=== PATIENT | male | born 1960 | race Caucasian/White ===

== ENCOUNTER 2019-07-23 11:07 | Emergency (ER) | payer OTHER, SELFPAY ==
[2019-07-23] VITALS (16 sets, daily range): BP systolic 134–192; BP diastolic 76–94; PULSE 72–142; RESP 14–192; TEMP 36.4–36.9; O2SAT 96–100
--- NOTE | ~2019-07-23 | XR_ITS ---
EXAMINATION: XR wrist LT 2V INDICATION: Right distal radius fracture post reduction TECHNIQUE: Two views of the right wrist are obtained. COMPARISON: 1113 hours FINDINGS: The previously described comminuted, intra-articular fracture of the distal radius has been reduced and is in near-anatomic alignment. Soft tissue swelling surrounds the wrist. A splint has be en applied. No definite additional acute osseous abnormality is identified. IMPRESSION: 1. Reduced distal radius fracture in near-anatomic alignment. Reviewed, dictated and finalized at location A.
--- NOTE | ~2019-07-23 | XR_ITS ---
XR shoulder RT min 2V DATE: 07/23/2019 11:21 INDICATION: Fall. Right shoulder injury. Lateral proximal humeral pain. TECHNIQUE: 4 views of right shoulder COMPARISON: None FINDINGS: No fracture or dislocation, periosteal reaction or bone destruction is evident. Normal alig nment at the acromioclavicular and glenohumeral joints. There is some calcification adjacent to the greater tuberosity which may represent calcific tendiniti s. IMPRESSION: No fracture or dislocation Reviewed, dictated and finalized at location A. IMPRESSION: No fracture or dislocation
--- NOTE | ~2019-07-23 | XR_ITS ---
XR wrist LT min 3V DATE: 07/23/2019 11:21 INDICATION: Fall, injury. Left wrist pain. TECHNIQUE: 3 views COMPARISON: None FINDINGS: There is a comminuted intra-articular fracture distal radius with up to 6 mm dorsal displac ement and apex volar angulation with associated dorsal inclination of the distal radial articular mahesh face. The distal ulna appears intact. Radiocarpal alignment is preserved. IMPRESSION: Comminuted intra-articular fracture of the distal radius with dorsal displacement and rocío jefry inclination of the distal radial articular surface Reviewed, dictated and finalized at location A. IMPRESSION: Comminuted intra-articular fracture of the distal radius with dorsa l displacement and dorsal inclination of the distal radial articular surface
--- NOTE | 2019-07-23 12:41 | ED.UPPEXIN ---
HPI - Extremity Injury (Upper) General Chief Complaint: Extremity Injury, Upper <Reddy Ovalle PA-C - Last Filed: 07/23/19 16:21> Stated Complaint: fall - left wrist injury <RADHA Lemus Last Filed: 07/23/19 16:21> Time Seen by Provider: 07/23/19 11:18 <Reddy Ovalle PA-C - Last Filed: 07/23/19 16:21> Source: patient <RADHA Lemus Last Filed: 07/23/19 16:21> Mode of arrival: ambulatory <RADHA Lemus Last Filed: 07/23/19 16:21> Limitations: no limitations <RADHA Lemus Last Filed: 07/23/19 16:21> History of Present Illness HPI narrative: Patient presents with chief complaint of pain to right shoulder and pain to left wrist that began after patient fell down 6-8 steps this morning while taking out the dog. Patient states that he did not hit his head or hurt his neck, have any loss of consciousness, changes in vision or hearing, headache, or bleeding from his orifices. He denies any neurological deficits. Patient states that he put out his left hand to break his self and this when he noticed a pop and pain sensation. Patient reports he still has sensation to his fingers. Patient reports pain with any range of motion of his wrist. Patient reports swelling to the area. Patient denies prior fracture to the wrist or shoulder. Patient states that he ate and drank just prior to coming to the emergency department. <Reddy Ovalle PA-C - Last Filed: 07/23/19 16:21> Related Data Home Medications: Home Medications Medication Instructions Recorded Confirmed lisinopril-hydrochlorothiazide tablet 07/23/19 <Reddy Ovalle PA-C - Last Filed: 07/23/19 16:21> Allergies/Adverse Reactions: Allergies Allergy/AdvReac Type Severity Reaction Status Date / Time No Known Allergies Allergy Unverified 07/23/19 11:14 <RADHA Lemus Last Filed: 07/23/19 16:21> Review of Systems Review of Systems: Narrative: CONSTITUTIONAL: Denies fever, chills, or sweats. EYES: Denies visual changes, redness, or discharge. ENT: Denies rhinorrhea, congestion, sore throat, or otalgia. CARDIOVASCULAR: Denies chest pain, palpitations, or edema. RESPIRATORY: Denies cough or dyspnea. GASTROINTESTINAL: Denies abdominal pain, nausea, vomiting, or diarrhea. GENITOURINARY: Denies dysuria or hematuria. SKIN: Denies rash or itching. MUSCULOSKELETAL: Right shoulder and left wrist pain NEUROLOGIC: Denies headache, numbness, dizziness, or weakness. PSYCHIATRIC: Denies anxiety or depression. <Reddy Ovalle PA-C - Last Filed: 07/23/19 16:21> [facility] Social History Social History: Social History (Updated 07/23/19 @ 12:44 by Reddy Ovalle PA-C) Additional smoking assessment comments: none Alcohol use details: occasional Substance use: current Substance use type: marijuana Gender identity (if verbalized by the patient): Male <Reddy Ovalle PA-C - Last Filed: 07/23/19 16:21> Exam Narrative: Exam Narrative: GENERAL: Well-appearing, well-nourished, and in no acute distress. HEAD: Normocephalic, atraumatic. No outward signs of injury or tenderness. EYES: PERRLA and EOMI. ENT: Nares clear, no rhinorrhea or epistaxis. Mucous membranes moist. Oropharynx without tonsillar hypertrophy exudate or other lesions. Bilateral TMs pearly dunlap nonbulging NECK: Supple. No adenopathy or masses. CHEST: Clear to auscultation. No respiratory distress. No wheezes rales or rhonchi HEART: Regular rate and rhythm. EXTREMITIES: Tenderness with palpation of right shoulder. Range of motion limited due to discomfort to right shoulder. Edema deformity noted to left wrist. Radial pulse strong and palpable. Abrasion noted to ulnar aspect. Sensations noted to all fingertips. Cap refill intact as well. SKIN: Warm, dry, no rash. NEURO: No focal deficits. Alert and oriented x3. PSYCH: Normal mood and affect. <Reddy Ovalle PA-C - Last Filed: 07/23/19 16:21> Co
[2019-07-23] MEDS: ONDANSETRON INJ 4 MG/2 ML VIAL IV PUSH (13:21)
--- NOTE | 2019-08-28 13:32 | PM.OP ---
Procedure Note - Brief Procedure Note - Brief Date of procedure: 08/28/19 Pre-op diagnosis: fall - left wrist injury Surgeon: Dayton Candelaria MD THE PATIENT WAS SEDATED BY THE ER ATTENDING PHYSICIAN. ONCE HE APPEARED SEDATED THE LEFT WRIST WAS REDUCED AND THEN PLACED IN A SUGAR TONG SPLINT. XRAYS WERE TAKEN SHOWING IMPROVED ALIGNMENT OF THE DISTAL RADIUS FRACTURE. HE TOLERATED THE PROCEDURE WELL.
== END 2019-07-23 16:55 | disposition home or self-care (01) ==
PROVIDERS: Emergency Provider General Practice; PCP Internal Medicine
DX: S52.572A Other intraarticular fracture of lower end of left radius, initial encounter for closed fracture (principal); W10.9XXA Fall (on) (from) unspecified stairs and steps, initial encounter
CPT/HCPCS: 25605; 73030; 73100; 73110; 96374; 96375; 99285; A4565; A9270; J2405; J2704; J3010

== ENCOUNTER 2021-12-01 13:09 | Emergency (ER) | payer OTHER, SELFPAY ==
--- NOTE | ~2021-12-01 | XR_ITS ---
EXAMINATION: XR foot RT min 3V DATE: 12/01/2021 14:17 INDICATION: Right foot pain TECHNIQUE: Dorsoplantar, lateral, and 2 oblique views of the right foot were obtained. COMPARISON: 03/29/2007 FINDINGS: No acute fracture is identified. There is deformity in the fifth metatarsal at the site of previous fracture. Bone alignment is otherwise normal. 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 The soft tissues are unremarkable. Ther e is a posterior plantar calcaneal enthesophyte. IMPRESSION: 1. No acute osseous abnormality. Reviewed, dictated and finalized at location B.
[2021-12-01 13:17] VITALS: BP 164/104; PULSE 96; RESP 12; TEMP 37.3; O2SAT 99
--- NOTE | 2021-12-01 13:43 | ED.LOWEXIN ---
HPI - Extremity Injury (Lower) General Chief Complaint: Extremity Injury, Lower Stated Complaint: rt foot pain Time Seen by Provider: 12/01/21 13:30 Source: patient Mode of arrival: ambulatory Limitations: no limitations History of Present Illness HPI Narrative: Patient presents today complaining of right foot pain x6 to 8 weeks. States he jammed his right second toe while he was going over dog gate. He has been continuing to walk with a limp. States he can no longer jog or walk without shoes in his home. States he continues to have some swelling in his foot. He currently rates his pain at rest 3/10, which is worse at night. He had been occasionally taking ibuprofen immediately following the injury, but has not taken any [id number] treatment for his pain for several weeks. Denies numbness or tingling. Describes the pain on the bottom of his foot as a burning pain, especially with flexion of the toe. Related Data Home Medications Medication Instructions Recorded Confirmed No Home Medications 12/01/21 12/01/21 Allergies Allergy/AdvReac Type Severity Reaction Status Date / Time No Known Allergies Allergy Verified 12/01/21 13:17 Review of Systems Review of Systems: CONSTITUTIONAL: Denies body aches, fever, chills, or sweats. EYES: Denies visual changes, redness, or discharge. ENT: Denies rhinorrhea, congestion, sore throat, or otalgia. CARDIOVASCULAR: Denies chest pain, palpitations, or edema. RESPIRATORY: Denies cough or dyspnea. GASTROINTESTINAL: Denies abdominal pain, nausea, vomiting, or diarrhea. GENITOURINARY: Denies dysuria or hematuria. SKIN: Denies rash, itching, or wounds. MUSCULOSKELETAL: Denies back pain, or myalgia.+ Right foot pain NEUROLOGIC: Denies headache, numbness, tingling, or weakness. PSYCH: Denies depression or anxiety. [facility] Past Medical History Medical History (Updated 12/01/21 @ 14:54 by Cari Burris, AIRPORT CLERK, ) Dupuytren's contracture of left hand Family History Family History Mother Diabetes mellitus Family history of heart disease in male family member before age 55 Social History Social History Smoking status: Never smoker Second hand tobacco smoke exposure: No Additional smoking assessment comments: none Alcohol intake: current Alcohol use details: occasional Substance use: current Substance use type: marijuana Gender identity (if verbalized by the patient): Male Comments At time of signature, I have reviewed and agree with nursing past medical, surgical, social and family history unless otherwise noted. Please see nursing chart for further information. There is no relevant family history pertinent to the presenting complaint Exam Narrative: GENERAL: Well-appearing, well-nourished, and in no acute distress. HEAD: Normocephalic, atraumatic. EYES: EOMI. No redness or drainage. Conjunctivae normal. ENT: Mucous membranes pink and moist. NECK: Normal AROM. CHEST: No respiratory distress. EXTREMITIES:: Right foot: No tenderness to the second toe. Tenderness to the distal aspect of the second metatarsal on the dorsal and plantar aspect. Patient does have some scant edema to the base of the second and third toes. No erythema or ecchymosis noted. Patient has a tiny subungual hematoma to the second toenail. Pain to the foot with flexion of the second toe. Distal sensation intact. Capillary refill normal. Pedal pulse normal. SKIN: Warm, dry, no rash. Capillary refill normal. Normal skin turgor. NEURO: No focal deficits. Alert and oriented x3. Gait steady. PSYCH: Normal affect. No signs of depression or anxiety. Course Course Emergency Course: 1343-patient is now leaving [facility] to go to [facility] for xray. Report has been given to John Cooley NP Level of Care: Express Care Visit Vital Signs Vital
== END 2021-12-01 14:59 | disposition home or self-care (01) ==
PROVIDERS: Emergency Provider Nurse Practitioner; PCP Internal Medicine
DX: M79.671 Pain in right foot (principal)
CPT/HCPCS: 73630; 99213; G0463

== ENCOUNTER 2022-10-22 11:34 | Outpatient (CLI) | payer OTHER, SELFPAY ==
[2022-10-22 22:04] LABS: Alanine Aminotransferase 26 U/L (6-50); Albumin Level 4.5 g/dL (3.5-5.1); Alkaline Phosphatase 62 U/L (38-126); Anion Gap 7 mmol/L (8-16); Aspartate Amino Transferase 38 U/L (17-59); Bilirubin,Total 1.3 mg/dL (0.2-1.3); Blood Urea Nitrogen 22 mg/dL (9-20); Calcium 9.1 mg/dL (8.4-10.2); Carbon Dioxide 30 mmol/L (22-30); Chloride 100 mmol/L (98-107); Cholesterol 235 mg/dL (0-200); Estimated Glomerular Filt Rate > 60; Glucose 119 mg/dL (65-110); HDL Direct 43 mg/dL; Sodium 137 mmol/L (137-145); Triglycerides 106 mg/dL (<150)
[2022-10-22 22:33] LABS: Prostate Specific Antigen 1.8 ng/mL (< OR = 4.0)
[2022-10-22 23:49] LABS: LDL Cholesterol Direct 157 mg/dL
[2022-10-23 03:18] LABS: Hemoglobin A1C 5.4 % (<5.7)
== END 2022-10-22 11:35 | disposition home or self-care (01) ==
LOC: ANHGOSHLAB 11:35
PROVIDERS: PCP Family Medicine; Visit Provider Family Medicine
DX: E11.9 Type 2 diabetes mellitus without complications (principal); E78.2 Mixed hyperlipidemia; Z12.5 Encounter for screening for malignant neoplasm of prostate; Z13.228 Encounter for screening for other metabolic disorders; Z13.6 Encounter for screening for cardiovascular disorders; Z12.11 Encounter for screening for malignant neoplasm of colon; Z12.12 Encounter for screening for malignant neoplasm of rectum
CPT/HCPCS: 36415; 80053; 80061; 83036; 84153